=== PATIENT | female | born 1945 ===

== ENCOUNTER 2020-06-25 20:45 | Inpatient (IN) | payer OTHER ==
[~2020-06-25] VITALS: Ht 169.2 cm; Wt 74.8 kg
[2020-06-25] MEDS ORDERED: ASPI81TA31 PO (21:01)
[2020-06-25] MEDS ORDERED: ATEN50TA PO (21:01)
[2020-06-25] MEDS ORDERED: FURO40TA5 PO (21:01)
[2020-06-25 22:14] VITALS: BP 138/56
[2020-06-25] MEDS ORDERED: MAG HYDROX/AL HYDROX/SIMETH 30 ML LIQUID UDC PO PRN (22:30)
[2020-06-25] MEDS ORDERED: ACETAMINOPHEN 325 MG TABLET PO PRN (22:30)
[2020-06-25] MEDS ORDERED: LORAZEPAM 1 MG TABLET PO PRN (22:30)
[2020-06-25] MEDS ORDERED: BLOOD SUGAR DIAGNOSTIC 1 EACH STRIP VI ONE (22:30)
[2020-06-25] MEDS ORDERED: ZOLPIDEM 5 MG TABLET PO PRN (22:30)
[2020-06-25] MEDS ORDERED: MAGNESIUM HYDROXIDE 30 ML LIQUID UDC PO PRN (22:30)
[2020-06-26 07:30] VITALS: BP 126/50
[2020-06-26 07:49] LABS: *BILIRUBIN,URIN NEGATIVE (NEGATIVE); *CLARITY,URINE SLIGHTLY CLOUDY (CLEAR); *COLOR,URINE YELLOW (YELLOW); *KETONES,URINE NEGATIVE (NEGATIVE); *UROBILINOGEN,URINE 0.2 E.U./dl (NORMAL); LEUKOCYTE ESTERASE ,URINE 1+ (NEGATIVE); NITRITE, URINE NEGATIVE (NEGATIVE); UGLUCOSE NEGATIVE (NEGATIVE)
[2020-06-26 08:12] LABS: *BLOOD, URINE TRACE (NEGATIVE)
[2020-06-26 09:00] LABS: *AMPHETAMINE, URINE POSITIVE (NEGATIVE); *CANNABINOID, URINE NEGATIVE (NEGATIVE); *COCCAINE, URINE NEGATIVE (NEGATIVE); *OPIATE, URINE NEGATIVE (NEGATIVE); *PHENCYCLIDINE SCREEN,URINE NEGATIVE (NEGATIVE)
[2020-06-26 09:10] LABS: *CREATININE,URINE 222.8 mg/dL (30-125); *URINE TOTAL PROTEIN RANDOM 22.5 mg/dL (<150/24HR)
[2020-06-26] MEDS: OLANZAPINE 2.5 MG TABLET PO SCH ×2 (10:15→20:28)
[2020-06-26] MEDS: ASPIRIN 81 MG TAB.CHEW PO SCH (10:15)
[2020-06-26] MEDS: ATENOLOL 50 MG TABLET PO SCH (10:15)
[2020-06-26] MEDS: FUROSEMIDE 40 MG TABLET PO SCH (10:15)
[2020-06-26 12:34] LABS: RBC,URINE 0-3 /HPF (0-3)
[2020-06-26 12:35] LABS: BACTERIA,URINE FEW /HPF (NONE SEEN); CALCIUM OXALATE CRYSTALS,UR FEW /HPF (NONE SEEN); SQUAMOUS EPITHELIAL CELL,UR MODERATE /HPF (NONE SEEN)
[2020-06-26] MEDS: NITROFURANTOIN/NITROFURAN MAC 100 MG CAPSULE PO SCH ×2 (12:36→20:28)
[2020-06-26 15:50] VITALS: BP 90/51
[2020-06-26 20:16] VITALS: BP 115/58
[2020-06-27 07:30] VITALS: BP 97/58
[2020-06-27 07:49] LABS: BASOPHILS % (AUTO) 1.1 % (0.0-2.0); EOSINOPHILS # (AUTO) 0.2 K/uL (0.0-0.7); EOSINOPHILS % (AUTO) 4.2 % (0.0-7.0); HEMATOCRIT 42.9 % (31.2-41.9); LYMPHOCYTES % (AUTO) 50.2 % (20.5-51.5); MEAN CORPUSCULAR HEMOGLOBIN 29.3 uug (24.7-32.8); MEAN CORPUSCULAR HGB CONC 33 g/dL (32.3-35.6); MEAN CORPUSCULAR VOLUME 89.7 fL (75.5-95.3); MONOCYTES # (AUTO) 0.3 K/uL (2.0-10.0); NEUTROPHILS # (AUTO) 1.5 K/uL (1.8-8.9); NEUTROPHILS % (AUTO) 36.5 % (38.5-71.5); PLATELET COUNT (AUTO) 207 K/uL (179-408); RED BLOOD CELL COUNT(AUTO) 4.78 MIL/uL (3.63-4.92)
[2020-06-27 08:00] LABS: BILIRUBIN,TOTAL 0.4 mg/dL (0.2-1.0); CREATININE 1.3 mg/dL (0.6-1.3); MAGNESIUM 2.3 mg/dL (1.8-2.4); PHOSPHOROUS 3.1 mg/dL (2.5-4.9); POTASSIUM 4.3 mmol/L (3.5-5.1); TOTAL PROTEIN, SERUM 7.4 g/dL (6.4-8.2)
[2020-06-27] MEDS: ATENOLOL 50 MG TABLET PO SCH (08:16)
[2020-06-27] MEDS: ASPIRIN 81 MG TAB.CHEW PO SCH (08:39)
[2020-06-27] MEDS: NITROFURANTOIN/NITROFURAN MAC 100 MG CAPSULE PO SCH ×2 (08:39→20:02)
[2020-06-27] MEDS: FUROSEMIDE 40 MG TABLET PO SCH (08:39)
[2020-06-27] MEDS: OLANZAPINE 2.5 MG TABLET PO SCH ×2 (08:39→20:02)
[2020-06-27 16:00] VITALS: BP 107/54
[2020-06-27 20:21] VITALS: BP 111/61
[2020-06-28 07:30] VITALS: BP 116/62
[2020-06-28] MEDS: OLANZAPINE 2.5 MG TABLET PO SCH ×2 (09:01→20:01)
[2020-06-28] MEDS: NITROFURANTOIN/NITROFURAN MAC 100 MG CAPSULE PO SCH ×2 (09:01→20:01)
[2020-06-28] MEDS: FUROSEMIDE 40 MG TABLET PO SCH (09:01)
[2020-06-28] MEDS: ATENOLOL 50 MG TABLET PO SCH (09:02)
[2020-06-28] MEDS: ASPIRIN 81 MG TAB.CHEW PO SCH (09:02)
[2020-06-28 11:07] LABS: A/G RATIO 1.1 (0.7-1.7); ALBUMIN 3.4 g/dL (2.9-4.4); ALPHA-1-GLOBULIN 0.2 g/dL (0.0-0.4); ALPHA-2-GLOBULIN 0.6 g/dL (0.4-1.0); BETA GLOBULIN 1.1 g/dL (0.7-1.3); GAMMA GLOBULIN 1.3 g/dL (0.4-1.8); GLOBULIN, TOTAL 3.2 g/dL (2.2-3.9); M-SPIKE Not Observed g/dL (Not Observed)
[2020-06-28 16:00] VITALS: BP 125/53
[2020-06-28 20:03] VITALS: BP 118/56
[2020-06-29 07:30] VITALS: BP 119/60
[2020-06-29] MEDS: FUROSEMIDE 40 MG TABLET PO SCH (08:59)
[2020-06-29] MEDS: NITROFURANTOIN/NITROFURAN MAC 100 MG CAPSULE PO SCH (08:59)
[2020-06-29 09:00] VITALS: BP 119/60
[2020-06-29] MEDS: ATENOLOL 50 MG TABLET PO SCH (09:00)
[2020-06-29] MEDS: OLANZAPINE 2.5 MG TABLET PO SCH (09:02)
[2020-06-29] MEDS: ASPIRIN 81 MG TAB.CHEW PO SCH (09:02)
[2020-06-29] MEDS ORDERED: ATORVASTATIN 10 MG TABLET PO SCH (21:00)
== END 2020-06-29 12:30 | disposition home or self-care (01) | DRG 885 ==
LOC: ER 20:45 → GPS 21:49
PROVIDERS: ADMIT Psychiatry & Neurology Psychiatry; ATTEND Nurse Practitioner Acute Care
DX: F29 Unspecified psychosis not due to a substance or known physiological condition (principal); N18.9 Chronic kidney disease, unspecified; N17.9 Acute kidney failure, unspecified; N39.0 Urinary tract infection, site not specified; F23 Brief psychotic disorder; F03.91 Unspecified dementia, unspecified severity, with behavioral disturbance; I25.10 Atherosclerotic heart disease of native coronary artery without angina pectoris; I50.9 Heart failure, unspecified; F15.159 Other stimulant abuse with stimulant-induced psychotic disorder, unspecified; I12.9 Hypertensive chronic kidney disease with stage 1 through stage 4 chronic kidney disease, or unspecified chronic kidney disease
CPT/HCPCS: 36415; 70450; 83735; 83970; 84100; 84155; 84156; 84165; 84300; 85025; 87086; 93005; A4663